=== PATIENT | female | born 1950 | race Caucasian/White ===

== ENCOUNTER 2017-03-05 15:17 | Emergency (ER) | payer SELFPAY ==
[~2017-03-05] VITALS: Wt 54.5 kg
[2017-03-05] MEDS ORDERED: RANI150T5 PO (16:45)
[2017-03-05] MEDS ORDERED: SERT50TA6 PO (16:46)
--- NOTE | 2017-03-05 16:46 | ERD ---
ER Documentation Chief Complaint Date/Time DATE: 03/05/17 TIME: 16:44 Chief Complaint abd pain, nausea, strick[place] HPI Patient is a 58-year-old female with several years of intermittent epigastric pain for which she has not had a diagnosis. For the last week she has had worsening symptoms and more frequent symptoms. The pain is gradual onset, moderate, burning, lasts for several hours at a time. Today the pain has been constant since 6 AM. Patient reports nausea, no vomiting. Patient does radiate to the chest. She denies back pain, dysuria, diarrhea or constipation. Denies fever. Patient takes ranitidine regularly. Patient is never seen a chief engineer's helper. ROS All systems reviewed and are negative except as per history of present illness. Medications Home Meds Active Scripts Polyethylene Glycol* (Miralax*) 17 Gm Powd.pack, 17 GM PO DAILY, #3 Prov:CARLOS STONE MD 03/05/17 Reported Medications Sertraline Hcl* (Sertraline Hcl*) 50 Mg Tablet, 25 MG PO QHS, #30 TAB 03/05/17 Ranitidine Hcl* (Ranitidine Hcl*) 150 Mg Tablet, 150 MG PO Q12, #60 TAB 03/05/17 Allergies Allergies: Coded Allergies: No Known Allergy (Unverified , 03/05/17) PMhx/Soc Past medical history: Gastritis. Denies diabetes, hypertension, coronary artery disease. Past surgical history: Resection of bowel tumor, hysterectomy Social history: [facility] Family History: No coronary disease, No diabetes Physical Exam Vitals Vital Signs Date Time Temp Pulse Resp B/P Pulse Ox O2 Delivery O2 Flow Rate FiO2 03/05/17 18:25 97.5 51 14 143/48 99 Room Air 03/05/17 16:21 52 15 125/52 100 Room Air 03/05/17 15:19 98.5 58 20 116/56 97 Physical Exam Const: Alert, no acute distress Head: Atraumatic Eyes: Normal Conjunctiva, no pallor, no icterus ENT: Normal External Ears, Nose and Mouth. Mucous membranes moist Neck: Full range of motion. No JVD. No meningismus. Resp: Clear to auscultation bilaterally, no wheezes, no rales Cardio: Regular rate and rhythm, no murmurs Abd: Soft, nondistended, mild epigastric tenderness, no guarding, no rebound Skin: No petechiae or rashes Back: No midline or flank tenderness Ext: No cyanosis, or edema Neur: Awake and alert, cranial nerves II through XII intact bilaterally, moves and feels 4 extremities appropriately. Psych: Normal Mood and Affect Result Diagram: 03/05/17 1630 03/05/17 1630 Results 24 hrs Laboratory Tests Test 03/05/17 16:30 03/05/17 17:27 White Blood Count 7.010^3/ul Red Blood Count 3.9810^6/ul Hemoglobin 12.5g/dl Hematocrit 36.5% Mean Corpuscular Volume 91.7fl Mean Corpuscular Hemoglobin 31.4pg Mean Corpuscular Hemoglobin Concent 34.2g/dl Red Cell Distribution Width 13.2% Platelet Count 32934^3/UL Mean Platelet Volume 10.3fl Neutrophils % 67.8% Lymphocytes % 23.2% Monocytes % 7.3% Eosinophils % 0.9% Basophils % 0.4% Nucleated Red Blood Cells % 0.0/100WBC Neutrophils # 4.710^3/ul Lymphocytes # 1.610^3/ul Monocytes # 0.510^3/ul Eosinophils # 0.110^3/ul Basophils # 0.010^3/ul Nucleated Red Blood Cells # 0.010^3/ul Sodium Level 140mmol/L Potassium Level 4.0mmol/L Chloride Level 100mmol/L Carbon Dioxide Level 29mmol/L Anion Gap 15 Blood Urea Nitrogen 15mg/dl Creatinine 0.67mg/dl Glucose Level 95mg/dl Calcium Level 9.2mg/dl Total Bilirubin 0.5mg/dl Direct Bilirubin 0.00mg/dl Indirect Bilirubin 0.5mg/dl Aspartate Amino Transf (AST/SGOT) 22IU/L Alanine Aminotransferase (ALT/SGPT) 28IU/L Alkaline Phosphatase 80IU/L Troponin I < 0.012ng/ml Total Protein 7.0g/dl Albumin 4.1g/dl Globulin 2.90g/dl Albumin/Globulin Ratio 1.41 Lipase 124U/L Urine Color LT. YELLOW Urine Clarity CLEAR Urine pH 6.5 Urine Specific [place] <=1.005 Urine Ketones NEGATIVE Urine Nitrite NEGATIVE Urine Bilirubin NEGATIVE Urine Urobilinogen 0.2 E.U./dL Urine Leukocyte Esterase TRACE Urine Microscopic RBC NONE SEEN/HPF Urine Microscopic WBC 0-2/HPF Urine Hemoglobin NEGATIVE Urine Glucose NEGATIVE% Urine Total Protein NEGATIVE Current Medications Medications (Trade) Dose Ordered Sig/Timothy Route PRN Reason Start Time Stop Time Status Last Admin Dose Admin Miscellaneous Medication (Gi Cocktail (2)) 40 ml ONCE ONCE PO 03/05/17 18:00 03/05/17 18:01 DC 03/05/17 18:01 Procedures/MDM EKG read by me: Time 1652, rate 51 Rhythm: Sinus bradycardia Ovid: Normal Intervals: Normal ST-T waves: T-wave flattening, no ischemic changes Ectopy: No Q-waves: No Impression: Bradycardia, T-wave flattening, otherwise unremarkable MDM: Patient is a 66-year-old female with intermittent epigastric pain for several years. Patient has had pain more frequently and severely for the last week. She denies fever or vomiting, back pain, constipation. Patient's labs and vital signs are unremarkable, no evidence of coronary ischemia, no evidence of hepatobiliary disease. Patient has benign serial abdominal exams with no significant tenderness, guarding or rebound. The patient has seen providers at other locations before, and has been referred to [facility] to obtain follow-up with a chief engineer's helper due to lack of insurance. The family states that they do not want to go to [facility]. I explained to them that this is the only location where they will be able to see a specialist on a nonemergent basis. There is no evidence of medical emergency at this time. I have advised the family to return to the ER if the patient expresses worsening pain, fever, vomiting or other new symptoms. The patient is already on an H2 [place]. I will give a few days of a mild laxative in case symptoms are related to stool retention. Departure Diagnosis: Primary Impression: Abdominal pain Abdominal location: epigastric Qualified Code: R10.13 - Epigastric pain Condition: Stable CARLOS STONE MD Mar 05, 2017 16:46
[2017-03-05 16:50] LABS: ADD SCAN DIFF NO
[2017-03-05 16:51] LABS: BASOPHILS % 0.4 % (0.0-2.0); EOSINOPHILS # 0.1 10^3/ul (0.0-0.5); EOSINOPHILS % 0.9 % (0.0-7.0); HEMATOCRIT 36.5 % (37.0-47.0); HEMOGLOBIN 12.5 g/dl (12.0-16.0); LYMPHOCYTES # 1.6 10^3/ul (0.8-2.9); LYMPHOCYTES % 23.2 % (15.0-51.0); MEAN CORPUSCULAR HEMOGLOBIN 31.4 pg (29.0-33.0); MEAN CORPUSCULAR HGB CONC 34.2 g/dl (32.0-37.0); MEAN CORPUSCULAR VOLUME 91.7 fl (82.0-101.0); MEAN PLATELET VOLUME 10.3 fl (7.4-10.4); MONOCYTE # 0.5 10^3/ul (0.3-0.9); MONOCYTES % 7.3 % (0.0-11.0); NEUTROPHIL # 4.7 10^3/ul (1.6-7.5); NEUTROPHILS % 67.8 % (39.0-77.0); PLATELET COUNT 247 10^3/UL (140-415); RED BLOOD COUNT 3.98 10^6/ul (4.20-5.40); RED CELL DISTRIBUTION WIDTH 13.2 % (11.5-14.5)
[2017-03-05 17:00] LABS: ALBUMIN 4.1 g/dl (3.3-4.9); CHLORIDE 100 mmol/L (97-110)
[2017-03-05 17:01] LABS: SODIUM 140 mmol/L (135-144)
[2017-03-05 17:03] LABS: ALANINE AMINOTRANSFERASE 28 IU/L (13-69); ALBUMIN/GLOBULIN RATIO 1.41; ALKALINE PHOSPHATASE 80 IU/L (42-121); ANION GAP 15 (8-16); ASPARTATE AMINO TRANSFERASE 22 IU/L (15-46); BILIRUBIN,INDIRECT 0.5 mg/dl (0-1.1); BILIRUBIN,TOTAL 0.5 mg/dl (0.2-1.3); BLOOD UREA NITROGEN 15 mg/dl (7-20); CARBON DIOXIDE 29 mmol/L (21-31); CREATININE 0.67 mg/dl (0.44-1.00); GLUCOSE 95 mg/dl (70-220)
[2017-03-05 17:04] LABS: CALCIUM 9.2 mg/dl (8.4-10.2)
--- NOTE | 2017-03-05 17:14 | RADRPT ---
PROCEDURE: XR Chest. CLINICAL INDICATION: Chest and abdomen pain. TECHNIQUE: Single frontal view. COMPARISON: None. FINDINGS: The lungs are clear. The heart size is normal. There is no pleural effusion. There is no pneumothorax. IMPRESSION: 1. Normal chest radiograph. RPTAT: QQ .Koko Razo MD, MD Date Time Electronically viewed and signed by .Koko Razo MD, on 03/05/2017 17:14 .R/
[2017-03-05 17:16] LABS: TROPONIN-I < 0.012 ng/ml (0.00-0.12)
[2017-03-05 17:44] LABS: ADD UMIC YES; URINE BILIRUBIN (Dip) NEGATIVE (NEGATIVE); URINE BLOOD (Dip) NEGATIVE (NEGATIVE); URINE COLOR LT. YELLOW (YELLOW); URINE GLUCOSE (Dip) NEGATIVE (NEGATIVE); URINE KETONES (Dip) NEGATIVE (NEGATIVE); URINE LEUKOCYTE ESTERASE (Dip) TRACE (NEGATIVE); URINE NITRITE (Dip) NEGATIVE (NEGATIVE); URINE TOTAL PROTEIN (Dip) NEGATIVE (NEGATIVE); URINE UROBILINOGEN (Dip) 0.2 E.U./dL (0.1-1.0)
[2017-03-05] MEDS ORDERED: LIDOCAINE/MYLANTA 40 ML BTL PO ONE (18:00)
[2017-03-05 18:04] LABS: URINE RBCS NONE SEEN /HPF (0)
[2017-03-05 18:25] VITALS: BP 143/48; PULSE 51; RESP 14; TEMP 97.5
[2017-03-05] MEDS ORDERED: POLY17PO6 PO (19:21)
== END 2017-03-05 19:30 | disposition home or self-care (01) ==
LOC: E/R 15:17
DX: R10.13 Epigastric pain (principal); R40.2142 Coma scale, eyes open, spontaneous, at arrival to emergency department; R40.2362 Coma scale, best motor response, obeys commands, at arrival to emergency department; R40.2252 Coma scale, best verbal response, oriented, at arrival to emergency department
CPT/HCPCS: 36415; 71010; 80053; 81001; 81003; 83690; 84484; 85025; 93005